=== PATIENT | female | born 1945 | race Caucasian/White ===

== ENCOUNTER → 2019-01-02 | Outpatient (REF) | payer MEDICARE, BC ==
[~2019-01-02] MED LIST: FERAHEME510 MG/17 IV; LOSARTAN/HCT1 TA1 PO; METO25TAB PO; PERCOCET 5/321 COMBO PO; SYNTHROID125 MCG PO
[2019-01-02 14:51] LABS: ANION GAP 13 (6-22 (CALC)); BUN 19 mg/dL (8-23); BUN/CREATININE RATIO 21 (12-20 (CALC)); CARBON DIOXIDE 30 mmol/l (22-30); CHLORIDE 102 mmol/l (95-108); CREATININE 0.9 mg/dL (0.5-1.0); GFR > 60 ML/MIN (>=60 (CALC)); GFR FOR AFR.AMER. > 60 ML/MIN (>=60 (CALC)); SODIUM 140 mmol/l (137-146)
== END | disposition home or self-care (01) ==
LOC: LAB 14:22
PROVIDERS: ATTEND Internal Medicine
DX: I10 Essential (primary) hypertension (principal); E78.49 Other hyperlipidemia

== ENCOUNTER 2019-02-12 16:26 | Emergency (ER) | payer MEDICARE, BC ==
[~2019-02-12] VITALS: Ht 160 cm; Wt 90.0 kg
[~2019-02-12 16:26] MED LIST changes: -PERCOCET 5/321 COMBO PO
[2019-02-12] MEDS ORDERED: PERCOCET 5/321 COMBO PO (17:33)
[2019-02-12 17:42] VITALS: BP 123/58
== END 2019-02-12 18:08 | disposition home or self-care (01) ==
LOC: ED 16:26
PROC: 2W3CX1Z Immobilization of Right Lower Arm using Splint (ICD-10-PCS; principal; 2019-02-12)
DX: S52.501A Unspecified fracture of the lower end of right radius, initial encounter for closed fracture (principal); S20.212A Contusion of left front wall of thorax, initial encounter; R93.89 Abnormal findings on diagnostic imaging of other specified body structures; W01.0XXA Fall on same level from slipping, tripping and stumbling without subsequent striking against object, initial encounter; Y92.009 Unspecified place in unspecified non-institutional (private) residence as the place of occurrence of the external cause

== ENCOUNTER 2021-11-29 13:08 | Observation (INO) | payer MEDICARE, BC ==
[~2021-11-29] VITALS: Ht 160 cm; Wt 82.0 kg
[~2021-11-29 13:08] MED LIST changes: +PERCOCET 5/321 COMBO PO
--- NOTE | 2021-11-29 13:10 | NUR ---
PATIENT ESCORTED TO ROOM FROM [facility]. EKG COMPLETED AND LABS DRAWN. CONNECTED TO MONITOR AND MD NOTIFIED OF PATIENT STATUS.
[2021-11-29 14:45] LABS: ALBUMIN 4.2 g/dL (3.2-5.0); ALKALINE PHOSPHATASE 96 u/l (38-126); ANION GAP 16 (6-22 (CALC)); BILIRUBIN, TOTAL 0.7 mg/dL (0.0-1.4); BUN 25 mg/dL (8-23); BUN/CREATININE RATIO 24 (12-20 (CALC)); CARBON DIOXIDE 24 mmol/l (22-30); CHLORIDE 100 mmol/l (95-108); CREATININE 1.1 mg/dL (0.5-1.0); GFR 48 ML/MIN (>=60 (CALC)); GFR FOR AFR.AMER. 58 ML/MIN (>=60 (CALC)); POTASSIUM 4.7 mmol/l (3.5-5.1); SGOT/AST 20 u/l (9-36); SODIUM 135 mmol/l (137-146); TOTAL PROTEIN 7.7 g/dL (6.3-8.2)
[2021-11-29] MEDS ORDERED: COQ-1030 MG PO (14:59)
[2021-11-29] MEDS ORDERED: NITROGLYCERIN0.4 MG SL (14:59)
[2021-11-29] MEDS ORDERED: ASPIRIN ENTERIC81 MG PO (15:00)
[2021-11-29] MEDS ORDERED: CLOPIDOGREL75 MG PO (15:00)
[2021-11-29] MEDS ORDERED: ROSUVASTATIN CA20 MG PO (15:01)
[2021-11-29] MEDS ORDERED: DILTIAZEM HYDR240 M1 PO (15:02)
[2021-11-29] MEDS ORDERED: SPIRONOLACT50 MG PO (15:02)
[2021-11-29] MEDS ORDERED: TENORMIN PO (15:02)
[2021-11-29 15:03] LABS: HEMOGLOBIN 10.3 g/dl (12.0-16.0); IMMATURE GRANULOCYTES 0.1 % (0.0-5.0); MEAN CELL VOLUME 96.7 fL CALC (80.0-100.0); MEAN CORPUSCULAR HGB 31.3 pG CALC (26.0-32.0); MEAN CORPUSCULAR HGB CONC 32.4 g/dL CAL (32.0-36.0); NEUT# 7.54 thou/uL (2.00-7.15); RED BLOOD COUNT 3.29 mill/uL (4.20-5.60); RED CELL DISTRI WIDTH 13.7 % (11.5-15.5)
[2021-11-29] MEDS ORDERED: REPATHA140 MG/ML SC (15:03)
[2021-11-29 15:06] LABS: HEMATOCRIT 31.8 % (37.0-47.0)
--- NOTE | 2021-11-29 18:55 | NUR ---
DISCUSSED ELEVATED BNP WITH ER DOCTOR. HE STATED THAT THE ADMITTING PHYSICIAN WOULD BE INFORMED.
--- NOTE | 2021-11-29 18:55 | NUR ---
REPORT RECEIEVED FROM ER
--- NOTE | 2021-11-29 19:05 | NUR ---
REPORT CALLED. ROOM 269
--- NOTE | 2021-11-29 19:12 | NUR ---
PATIENT ARRIVED ON FLOOR ACCOMPANIED BY Trung RUBIN LPN.
[2021-11-29 19:36] VITALS: BP 150/123
[2021-11-29 22:28] VITALS: BP 148/98
[2021-11-29 23:00] VITALS: BP 112/77
--- NOTE | 2021-11-29 23:30 | NUR ---
HR A FIB 135, NOT SUSTAINING. HIGHEST HR AT 145, LOWEST AT 108, ORDER RECEIVED FOR METROPOLOL AND ADMINISTER.
[2021-11-30] VITALS: BP 127/87
--- NOTE | 2021-11-30 06:02 | NUR ---
PT SUSTAINING IN 120'S, CURRENTYL 129 AFTER METROPOLOL ADMINISTRATION.
[2021-11-30 06:23] LABS: HEMOGLOBIN 11.7 g/dl (12.0-16.0); MEAN CELL VOLUME 95.2 fL CALC (80.0-100.0); MEAN CORPUSCULAR HGB CONC 32.5 g/dL CAL (32.0-36.0); RED BLOOD COUNT 3.78 mill/uL (4.20-5.60); RED CELL DISTRI WIDTH 13.5 % (11.5-15.5)
[2021-11-30 06:26] LABS: ANION GAP 15 (6-22 (CALC)); BUN 20 mg/dL (8-23); BUN/CREATININE RATIO 23 (12-20 (CALC)); CALCULATED LDLCHOLESTEROL 49 mg/dL (62-129 (CALC)); CARBON DIOXIDE 24 mmol/l (22-30); CHLORIDE 99 mmol/l (95-108); CHOLESTEROL HDL RATIO 2.3 (<4.4 (CALC)); CREATININE 0.9 mg/dL (0.5-1.0); GFR > 60 ML/MIN (>=60 (CALC)); GFR FOR AFR.AMER. > 60 ML/MIN (>=60 (CALC)); HDL CHOLESTEROL 53 mg/dL (>=40); MAGNESIUM 1.9 mg/dL (1.6-2.3); POTASSIUM 4.2 mmol/l (3.5-5.1); SODIUM 134 mmol/l (137-146); TOTAL TRIGLYCERIDES 101 mg/dl (30-149); VLDL CHOLESTROL 20 mg/dl (0-48 (CALC))
[2021-11-30 06:35] LABS: TOTAL CHOLESTEROL 122 mg/dl (0-199)
[2021-11-30 07:29] VITALS: BP 127/95
--- NOTE | 2021-11-30 08:23 | NUR ---
SHIFT CHANGE REPORT, PT AWAKE ALERT AND ORIENTED RELAXING IN BED, DENIES DISCOMORFT AT THIS TIME AND STATES SHE SHOULD BE GOING HOME TODAY, TELE MONITOR IN PLACE, CALL KRAFT IN REACH AND BED LOCKED IN LOWEST POSITION.
[2021-11-30 10:55] VITALS: BP 100/61
== END 2021-11-30 14:30 | disposition home or self-care (01) ==
LOC: ED 13:08 → ED-I 16:00 → ED 16:26 → MS2 16:27
PROVIDERS: Family Medicine; ADMIT Hospitalist; ATTEND Hospitalist
DX: R07.9 Chest pain, unspecified (principal); I48.91 Unspecified atrial fibrillation; I45.10 Unspecified right bundle-branch block; I10 Essential (primary) hypertension; E78.5 Hyperlipidemia, unspecified; E03.9 Hypothyroidism, unspecified; S20.212A Contusion of left front wall of thorax, initial encounter; X58.XXXA Exposure to other specified factors, initial encounter; Z95.1 Presence of aortocoronary bypass graft; Z86.79 Personal history of other diseases of the circulatory system; Z95.828 Presence of other vascular implants and grafts; Z86.73 Personal history of transient ischemic attack (TIA), and cerebral infarction without residual deficits; Z20.822 Contact with and (suspected) exposure to COVID-19
CPT/HCPCS: Q9967